=== PATIENT | male | born 1990 | race Caucasian/White ===

== ENCOUNTER 2022-07-15 12:49 | Outpatient (CLI) | payer OTHER ==
[2022-07-15 13:34] VITALS: BP 136/82
--- NOTE | 2022-07-15 13:34 | SLEEP CARE CONSULTATION ---
Information from patient questionnaire entered by Kenyon Whittington. I have reviewed and concur with the information entered by Kenyon Whittington. This document represents the service I personally performed and the decisions made by me, Siomara Cervantes ARNP. History of Present Illness Service Date and Time: 07/15/2022 1249 Reason for Visit: New patient Chief Complaint: reports: Unrefreshed sleep, Snoring, Excessive daytime sleepiness, Observed pauses in breathing Date of Onset: 3-4 years Usual bedtime: 1am; depends on work schedule Time it takes to fall asleep: 30 minutes to 1 hour Snores at night: Yes Observed to quit breathing while asleep: Yes Number of times waking at night: 0-1 Reasons for waking at night: reports: Choking, Gasping for air (occasionally), Other (noise, unknown reason ). denies: Snoring Toss, Turn, or Twitch while sleeping: Yes Recalls having dreams: No (rarely, maybe during nap or just before alarm) Usually gets out of bed at: 10-11am Feels refreshed in the morning: No Morning headache: Yes (1 x a week; resolves 1-2 hours after wake up ) Sleepy or fatigued during the day: Yes Ever fallen asleep while driving: No Takes day naps: No Dreams during day naps: Yes (3 times a month, 30-60 minutes) Prior sleep studies: No Additional HPI information: I had the pleasure of seeing SUDHIR CLARK today regarding the possibility of him having a sleep disorder. His current complaints are unrefreshed sleep, snoring, excessive daytime sleepiness and observed pauses in breathing. He states he has restless sleep and is fatigued during the day. He has had many people/roommates tell him that he snores and that he also stops breathing during sleep. He has had some issues with waking up with choking/gasping sensations. He has also woke up with dry mouth and throat. He states his memory does not seem to be good as when he was in his early 20s. He is single and his parents both snore. - Parasomnia Symptoms Ever been unable to move upon waking from sleep: Yes (5 times overall in his life, couple times recently) Walks in sleep: No Talks in sleep: No (unknown) Ever acted out dreams in sleep: No Ever felt weak in the knees when startled or emotional: No Bothered by creepy, crawly, restless sensations in legs: No Problems with memory or concentration: Yes (memory, noticable difference) Subjective Initial [place] Sleepiness Scale score: 15 (10-3-22) Past Medical History Past Medical History: reports: Other (no past medical history, no major injuiries or surgeries) Social History The patient's occupation is a AM. Patient is Single and lives in . Have you smoked in the past 12 months: Yes Cigarettes per day (20/pack): 10 Years of smokin Quit date: switched vape Smoking Pack Years: 3.5 Alcohol use: Yes Alcohol amount and frequency: 2-3 drinks, 3x a month Caffeine use: Yes Caffeine amount and frequency: 2 cups coffee daily Family History Family history of sleep disordered breathing: Yes Family Hx Sleep Apnea: Mother: Snoring (dad, deviated septum), Father: Snoring Allergies and Home Medications Known drug allergies: No Drug allergies reviewed: Yes Home medication list reviewed: Yes (no daily medications; takes Multivitamin, fish oil, Vit D) Review of Systems Weight gain over past 5 years: 30 has fluctuated 2 times in last 5 yrs Weight loss over past 5 years: 30 Cardiovascular: denies: high blood pressure Gastrointestinal: denies: heartburn Neurological: denies: headaches, head trauma Psychiatric: denies: anxiety, depression Ear/Nose/Throat: reports: nasal congestion, sinus problems, dry mouth/throat. denies: tonsillectomy, wisdom teeth removed Immunologic: denies: allergies to food or environment Physical Exam Vital signs obtained and entered by: JAMES DAVIDSON Blood Pressure: 136/82 (right arm ) Cuff size: regular Heart Rate: 79 O2 Saturation: 98 Height: 5 ft 10 in Weight: 202 lb Body Mass Index: 29.0 BMI Classification: Overweight Neck circumference: 16 (inches ) Mouth and throat: narrow oropharynx Soft palate: normal Hard palate: normal Uvula: normal Uvula visualization: 25% Mallampati Class III Tongue: enlarged in size with teeth ramirez on lateral edges Tonsils: 1+ Neck: normal w/o lymphadenopathy or thyromegaly Heart: regular rate and rhythm Lungs: clear bilaterally Impression and Plan 1. Suspected Obstructive Sleep Apnea-Hypopnea Syndrome, as suggested by a history of loud and irregular snoring, observed cessation of breath while asleep, gasping or choking in sleep, morning headache, unrefreshed sleep, cognitive impairment, and excessive daytime sleepiness. Narrow oropharynx and obesity are common predisposing factors for obstructive sleep apnea-hypopnea syndrome. I recommend proceeding to polysomnography to confirm the diagnosis and to assess severity. If the patient has significant sleep disordered breathing, a manual CPAP titration study will also be performed to find the optimal treatment pressure. I informed the patient of what the sleep studies involve and after some discussion, obtained agreement to proceed. The pathophysiology of obstructive sleep apnea-hypopnea syndrome was discussed with the patient and health risks of cardiovascular and cerebrovascular disease if not treated. Risks of drowsy driving discussed in detail and patient advised to avoid long distance driving and to stock puller at the first sign of drowsiness. Patient agreed to plan. * Schedule polysomnography * Avoid long distance driving or driving when feeling sleepy. * Avoid alcohol, sedative and muscle relaxant around bedtime. * Attempt to lose weight. * Review instructions provided by trained office staff on how to prepare for the sleep study. * Return for follow-up after sleep study completed. Counseling Topics: Weight loss health impact Visit Type: In Office Time Spent with Patient (minutes): 31 Provider Statement: I spent 100% of the Face to Face Visit with the patient with greater than 50% spent counseling the patient and coordination of care.
== END 2022-07-15 12:50 | disposition home or self-care (01) ==
LOC: SC 12:49
PROVIDERS: ATTEND Nurse Practitioner Family
DX: R06.83 Snoring (principal); G47.8 Other sleep disorders; R06.81 Apnea, not elsewhere classified; R51.9 Headache, unspecified; G47.10 Hypersomnia, unspecified; R53.83 Other fatigue; F17.290 Nicotine dependence, other tobacco product, uncomplicated; E66.3 Overweight; Z68.29 Body mass index [BMI] 29.0-29.9, adult
CPT/HCPCS: 99203; 99212

== ENCOUNTER 2022-08-01 20:26 | Outpatient (CLI) | payer OTHER | END 2022-08-01 20:27 | disposition home or self-care (01) | LOC: SC 20:26 | PROVIDERS: ATTEND Nurse Practitioner Family | DX: R06.83 Snoring (principal); R53.83 Other fatigue; G47.8 Other sleep disorders; R51.9 Headache, unspecified; G47.10 Hypersomnia, unspecified | CPT/HCPCS: 95810 ==

== ENCOUNTER 2022-08-21 13:18 | Outpatient (CLI) | payer OTHER ==
[2022-08-21 13:41] VITALS: BP 126/80
--- NOTE | 2022-08-21 13:41 | SLEEP CARE CONSULTATION ---
Information from patient questionnaire entered by Jacque Christine. I have reviewed and concur with the information entered by Jacque Christine. This document represents the service I personally performed and the decisions made by , Siomara Cervantes ARNP. History of Present Illness Service Date and Time: 08/21/2022 1318 Initial [place] Sleepiness Scale score: 15 (10-3-22) Current [place] Sleepiness Scale score: 13 (08/21/2022) Additional HPI information: SUDHIR CLARK returns for follow up and results of the recently performed polysomnography. The patient was informed of the following findings: No significant sleep disordered breathing with an average AHI of 4.0 and torito oxygen saturation of 89%. His supine AHI was 22.7. He had a delayed sleep onset and had difficulty relaxing/shutting mind off that night. I explained the pathophysiology behind obstructive sleep apnea. Patient does not have sleep apnea and was advised how weight gain could increase the risk of developing sleep apnea in the future. Patient has light to moderate snoring. Snoring can be reduced by weight loss. Weight loss is best achieved with diet consult. Patient instructed to contact PCP for referral. Snoring can also be treated with an oral appliance from a dentist. Advised to check insurance coverage. In addition, an ENT evaluation can be do to see if other treatment is indicated. Patient counseled not drink alcohol less than 4 hours before bedtime as it can increase snoring and apnea. Patient was cautioned about risks of drowsy driving until sleepiness symptoms resolve. Sleep Study - Results Type of Sleep Study: Polysomnography (COMPLETED 08/01/22) Prior sleep studies: No Polysomnography/Home Sleep Study results: IMPRESSION: The quality of the study is good. The patient had poor sleep efficiency. The sleep architecture was abnormal for lack of REM sleep. Respiratory monitoring showed no significant sleep disordered breathing (AHI = 4.0) or hypoxia (torito oxygen saturation of 89%). The few respiratory events occurred almost exclusively during supine sleep (supine AHI = 22.7; non-supine = 0.79). Snore was very light in intensity. There was no significant periodic leg movement of sleep. Cardiac rhythm was normal sinus rhythm without significant arrhythmia. No abnormal behavior (parasomnia) observed during the night. Allergies and Home Medications Drug allergies reviewed: Yes (NKDA) Home medication list reviewed: Yes (no changes) Review of Systems Review of systems same as previous: Yes (no changes) Physical Exam Vital signs obtained and entered by: JACQUE Vela MA Blood Pressure: 126/80 (LEFT ARM) Cuff size: regular Heart Rate: 78 O2 Saturation: 98 Height: 5 ft 10 in Weight: 212 lb 9.6 oz Body Mass Index: 30.4 BMI Classification: Obese Impression and Plan 1. Suspected Obstructive Sleep Apnea-Hypopnea Syndrome, as suggested by a history of loud and irregular snoring, observed cessation of breath while asleep, unrefreshed sleep, and excessive daytime sleepiness. Patient did an in lab sleep PSG but he did not feel he slept at all that night. He states it was not a good representation of a usual night. He felt it would be better if he could do a HST. I agreed and recommend proceeding to polysomnography to confirm the diagnosis and to assess severity. I obtained agreement to proceed. The pathophysiology of obstructive sleep apnea-hypopnea syndrome was discussed with the patient and health risks of cardiovascular and cerebrovascular disease if n ot treated. Risks of drowsy driving discussed in detail and patient advised to avoid long distance driving and to drum puller at the first sign of drowsiness. Patient agreed to plan. * Schedule polysomnography/HST * Avoid long distance driving or driving when feeling sleepy. * Avoid alcohol, sedative and muscle relaxant around bedtime. * Review instructions provided by trained office staff on how to prepare for the sleep study. * Return for follow-up after sleep study completed. Visit Type: In Office Time Spent with Patient (minutes): 16 Provider Statement: I spent 100% of the Face to Face Visit with the patient with greater than 50% spent counseling the patient and coordination of care.
== END 2022-08-21 13:19 | disposition home or self-care (01) ==
LOC: SC 13:18
PROVIDERS: ATTEND Nurse Practitioner Family
DX: R06.83 Snoring (principal); G47.8 Other sleep disorders; R06.81 Apnea, not elsewhere classified; G47.10 Hypersomnia, unspecified
CPT/HCPCS: 99212